=== PATIENT | male | born 1965 ===

== ENCOUNTER → 2021-12-26 18:08 | Outpatient (CLI) | payer SELFPAY ==
[2021-12-26 18:14] VITALS: BMI 25.7
[2021-12-26 19:23] LABS: Coronavirus 19, PCR Not Detected (NotDetected); Influenza A, PCR Not Detected (NotDetected); Influenza B, PCR Not Detected (NotDetected)
== END ==
PROVIDERS: Visit Provider Nurse Practitioner
DX: Z11.52 Encounter for screening for COVID-19 (principal)
CPT/HCPCS: C9803; U0003; U0005